=== PATIENT | female | born 1975 | race Caucasian/White ===

== ENCOUNTER 2019-05-28 11:07 | Emergency (ER) | payer MEDICAID, MEDICARE ==
[~2019-05-28] VITALS: Ht 160 cm; Wt 129.0 kg
[~2019-05-28 11:07] MED LIST: ALPR1TAB2 PO; CLON-527 PO; FLUO-213 PO; HYDR-4353 PO; HYDR25TA4 PO; LEVO100T9 PO; LISI-600 PO; MELA1TAB11 PO; METO100T7 PO; ONDA4TAB9 SL; PARO-62 PO
[2019-05-28 11:26] VITALS: BP 155/104
[2019-05-28] MEDS ORDERED: diltiazem 30mg tablet PO ONE (13:05)
[2019-05-28] MEDS ORDERED: AMOX-422 PO (13:26)
[2019-05-28] MEDS ORDERED: SULF1TAB49 PO (13:26)
== END 2019-05-28 13:51 | disposition home or self-care (01) ==
LOC: ER 11:08
DX: S60.423A Blister (nonthermal) of left middle finger, initial encounter (principal); S60.427A Blister (nonthermal) of left little finger, initial encounter; I10 Essential (primary) hypertension; Z87.442 Personal history of urinary calculi; Z56.0 Unemployment, unspecified; Z90.49 Acquired absence of other specified parts of digestive tract; Z98.890 Other specified postprocedural states; Z88.8 Allergy status to other drugs, medicaments and biological substances; Z79.899 Other long term (current) drug therapy; X58.XXXA Exposure to other specified factors, initial encounter; Y93.89 Activity, other specified; Y92.89 Other specified places as the place of occurrence of the external cause; Y99.9 Unspecified external cause status
CPT/HCPCS: 99283

== ENCOUNTER 2019-09-02 11:34 | Emergency (ER) | payer MEDICARE ==
[~2019-09-02] VITALS: Ht 157.5 cm; Wt 116.8 kg
[2019-09-02 11:37] VITALS: BP 190/124
[2019-09-02] MEDS ORDERED: AMOX-422 PO (12:00)
[2019-09-02] MEDS ORDERED: PRED20TA PO (12:00)
[2019-09-02] MEDS ORDERED: ALBU6.7H9 INH (12:00)
== END 2019-09-02 12:12 | disposition home or self-care (01) ==
LOC: ER 11:35
DX: J45.909 Unspecified asthma, uncomplicated (principal); D84.9 Immunodeficiency, unspecified; I10 Essential (primary) hypertension; F31.9 Bipolar disorder, unspecified; Z90.49 Acquired absence of other specified parts of digestive tract; Z98.890 Other specified postprocedural states; Z56.0 Unemployment, unspecified; Z79.2 Long term (current) use of antibiotics; Z79.899 Other long term (current) drug therapy
CPT/HCPCS: 99283

== ENCOUNTER 2020-01-17 04:54 | Emergency (ER) | payer MEDICARE ==
[~2020-01-17] VITALS: Ht 162.6 cm; Wt 110.0 kg
[~2020-01-17 04:54] MED LIST changes: +ALBU6.7H9 INH
[2020-01-17 05:06] VITALS: BP 166/93
[2020-01-17] MEDS ORDERED: ipratropium/albuterol 3ml nebule NEB ONE ×2 (05:15→05:25)
[2020-01-17] MEDS ORDERED: ipratropium/albuterol 3ml nebule ONE (05:29)
== END 2020-01-17 06:07 ==
LOC: ER 04:55
DX: J45.901 Unspecified asthma with (acute) exacerbation (principal); I10 Essential (primary) hypertension; F31.9 Bipolar disorder, unspecified; F12.90 Cannabis use, unspecified, uncomplicated; Z87.442 Personal history of urinary calculi; Z87.440 Personal history of urinary (tract) infections; Z85.841 Personal history of malignant neoplasm of brain; Z90.49 Acquired absence of other specified parts of digestive tract; Z98.890 Other specified postprocedural states; Z56.0 Unemployment, unspecified; Z79.899 Other long term (current) drug therapy
CPT/HCPCS: 94640; 94760; 99283